=== PATIENT | male | born 1975 | race Two or more races ===

== ENCOUNTER 2024-12-12 09:34 | Emergency (ER) | payer BC, MEDICARE, SELFPAY ==
[2024-12-12] VITALS (11 sets, daily range): BP systolic 199–218; BP diastolic 77–86; PULSE 66–70; RESP 0–20; TEMP 33.9–34.9; O2SAT 87–100; BMI 27.5
[2024-12-12] MEDS: ETOMIDATE INJ 2 MG/ML VIAL 10 ML 20 MG IVP (09:41)
--- NOTE | 2024-12-12 09:42 | XR_ITS ---
Examination: AP chest single view Technique one AP portable semiupright chest single view Exam date and time: November 12, 2024 1016 hours Comparison January 16, 2023 INDICATIONS: Hypoxic respiratory failure postintubation FINDINGS: Normal heart size Endotracheal tube tip 8.4 cm above Ni. Orogastric tube is in the stomach, in satisfactory position. No aspiration pneumonia. Mild osteopenia. IMPRESSION: Endotracheal tube tip 8.4 cm above Ni No aspiration pneumonia
--- NOTE | 2024-12-12 09:51 | XR_ITS ---
Examination: CT brain head without contrast. 2-D sagittal coronal reconstructions Date and time of exam:December 12, 2024 1055 hours INDICATIONS: Status post cardiopulmonary arrest CTDI: vol (mGy):57 DLP: (mGycm):1178 Technique: Multiple CT axial sections of the brain have been obtained, 5 mm slice thickness. Contrast has not been administered. 2-D sagittal, coronal reconstructions have been obtained Low dose protocols were performed. One or more of the following dose reduction techniques were used; automated exposure control, adjustment of the mA and/or KV according to patient size, use of iterative reconstruction technique. Findings: 3 x 3.7 cm acute hemorrhage left caudate nucleus This hemorrhage has ruptured into the ventricular system Severe mass effect with shift of the frontal horns to the right at least 8 mm Hemorrhage in the lateral ventricles, third ventricle, aqueduct and fourth ventricle Lower end of the cerebellar tonsils poorly defined on the lateral view Cranial vault intact Mild to moderate ventricular enlargement Generalized cerebral edema IMPRESSION: Large acute hemorrhage left caudate nucleus which has ruptured into the ventricular system Significant mass effect Generalized cerebral edema
[2024-12-12 10:07] LABS: Lactate (Lactic Acid) 0.8 mMol/L (0.4-2.0)
[2024-12-12 10:10] LABS: Collection Type, Urine Catheter; Squamous Epithelial Cell,Urine 0 /hpf (0-5)
[2024-12-12 10:14] LABS: Basophils # (Auto) 0.1 Thou/mm3 (0.0-0.2); Basophils % (Auto) 1 % (0-2.5); Eosinophils # (Auto) 0.3 Thou/mm3 (0.0-0.5); Eosinophils % (Auto) 2 % (0-10); Hematocrit 33.8 % (41.0-53.0); Hemoglobin 11.3 g/dL (13.5-16.0); Immature Granulocytes % (Auto) 1 % (0-0); Immature Granulocytes Auto 0.09 Thou/mm3 (0.00-0.00); Lymphocytes # (Auto) 0.9 Thou/mm3 (1.0-4.8); Lymphocytes % (Auto) 7 % (10-50); Mean Corpuscular HGB Conc 33.4 g/dl (31.0-37.0); Mean Corpuscular Hemoglobin 27.6 pg (25.0-35.0); Mean Corpuscular Volume 83 fL (80-100); Monocytes # (Auto) 0.5 Thou/mm3 (0.0-0.8); Monocytes % (Auto) 3 % (0-12); Neutrophils # (Auto) 11.5 Thou/mm3 (1.8-7.7); Neutrophils % (Auto) 86 % (37-80); Nucleated Red Blood Cell % 0 /100 WBC (0); Platelet Count 139 Thou/mm3 (140-440); RDW Standard Deviation 66.4 fL (35.1-43.9); Red Blood Count 4.09 Miln/mm3 (4.50-5.90); White Blood Count 13.4 Thou/mm3 (3.8-10.6)
--- NOTE | 2024-12-12 10:20 | PC.NURSE ---
Patient BIBA from home after becoming unresponsive per family members. CPR initiated by family with pulses present upon EMS arrival and agononal breathing upon which EMS initiated BVM with O2 sat of 89%. Upon arrival to ER patient was intubated due to agonal breathing and low O2 saturation. 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 Hx of peritoneal dialysis which is performed at home daily, HTN, diabetes, high cholesterol and NKA.
[2024-12-12 10:27] LABS: Bilirubin,Urine Negative (Negative); Blood,Urine Negative (Negative); Clarity,Urine Clear (Clear/Hazy); Color,Urine Lt-Yellow (Lt Yel-Yel); Glucose, Urine 2+ (Negative); Hyaline Casts,Urine < 1 /hpf (0-1); Ketones,Urine Negative (Negative); Leukocyte Esterase,Urine Negative (Negative); Nitrite,Urine Negative (Negative); PH,Urine 7.5 (5.0-7.0); Protein,Urine 2+ (Neg - Trace); RBC,Urine 5 /hpf (0-3); Specific Gravity,Urine 1.013 (1.001-1.035); Urobilinogen,Urine Negative mg/dL (0.0-1.0); WBC,Urine 1 /hpf (0-5)
--- NOTE | 2024-12-12 10:29 | EDNOTE_ITS ---
Altered Mental Status RME/HPI General Chief Complaint: Altered Mental Status Stated Complaint: UNRESPONSIVE Time Seen by Provider: 12/12/24 09:50 Arrival date/time: 12/12/24 09:34 Limitations: no limitations RME / HPI RME / HPI narrative: 48 year old male with history of CAD, hypertension, insulin-dependant diabetes, hyperlipidemia, hypothyroidism, CKD, ESRD on PD, depression presents to the ED BIBA from home for evaluation of altered mental status today. Per medics report, family on scene reported finding the patient unresponsive this morning and began CPR. Upon fire departments arrival, patient had pulses with agonal respirations. On their arrival patient was found unresponsive, sinus rhythm rate 70's, saturating 89% on room air with agonal respirations. State they began ventilating with BVM at 100%. No medications given en route. Further history obtained from family indicates that the patient underwent a left BKA one month ago. Additionally, provided documentation that confirmed a recent admission to [facility] from 11/20/2024 through 12/11/2024. Medication list was also reviewed and patient is on Aspirin and Plavix though unknown when he last took anticoagulants. On arrival to the ED, the patient remains unresponsive and unable to provide additional history. Related Data Home Medications ?Medication ?Instructions ?Recorded ?Confirmed olmesartan 40 mg-amlodipine 10 1 tab PO QDAY 09/27/22 01/17/23 mg-hydrochlorothiazide 25 mg tablet (Tribenzor) albuterol sulfate 90 mcg/actuation 90 inh inhalation B ID PRN 10/19/22 01/17/23 aerosol inhaler Shortness Of Breath Or Wheez ing insulin degludec 200 unit/mL (3 45 unit subcut DAILY 0 10/19/22 01/16/23 mL) subcutaneous pen (Tresiba FlexTouch U-200 insulin) bumetanide 2 mg tablet 2 mg PO DAILY 01/16/2301/16 levothyroxine 25 mcg tablet 25 mcg PO DAILY 01/16/23 0 01/16/23 ondansetron HCl 4 mg tablet 4 mg PO TID PRN Nausea 03/0301/17/23 vitamin B comp no.3-folic acid 1 1 tab PO DAILY 01/16/23 mg-vit C 60 mg-biotin 300 mcg tablet (Cecilia-Joni Rx) atorvastatin 10 mg tablet 10 mg 01/17/23 hydralazine 50 mg tablet 50 mg PO TID 01/17/23 insulin degludec 200 unit/mL (3 unit subcut 01/17/23 mL) subcutaneous pen (Tresiba FlexTouch U-200 insulin) omeprazole 20 mg capsule,delayed 20 mg 01/17/23 release Allergies Allergy/AdvReac Type Severity Reaction Status Date / Time No Known Allergies Allergy Verified 01/16/23 08:16 Review of Systems Review of Systems ROS Unobtainable: unobtainable due to mental status Past Medical History Past Medical History CARDIAC: Positive Cardiac Disorders, Hypercholesterolemia, Edema (bilateral ankle edema, on and off. right foot with boot) and Hypertension RESPIRATORY: Positive Asthma GASTROINTESTINAL: Positive Gastrointestinal Disorders (heartburn) and Gastroesophageal Reflux Disease GENITOURINARY: Positive Genitourinary Disorders and Renal Disease ENDOCRINE: Positive Endocrine Disorders, Diabetes Mellitus Type 2 and Hyperthyroidism HEMATOLOGIC: Positive Blood Disorders and Anemia OTHER HISTORY: Positive Shingles, Blood Transfusions and Chicken Pox Family History FAMILY HISTORY: Positive Family Cardiac Disorders (dad had htn) and Family Surgery (dad had kidney transplant) Surgical History SURGICAL: Positive Nose Surgery (deviated septum surgery) Social History SMOKING STATUS: Unknown if ever smoked ED Exam General Limitations: Present no limitations General appearance: Present other (Unresponsive with agonal respirations, actively being bagged by medics on arrival, face is symetrical ) Head Head exam: Present atraumatic, normocephalic and other (No obvious signs of trauma ) Eye Eye exam: Present PERRL and other (Pupils are 5mm and equal. ) ENT ENT exam: Present normal exam, normal oropharynx and mucous membranes moist Neck Neck exam: Present normal inspection and trachea midline Chest Chest inspection: Present normal inspection and symmetric chest wall rise Respiratory Respiratory exam: Present other (No respiratory activity though while beign bagged has normal lung sounds bilaterally ) Cardiovascular Cardiovascular exam: Present regular rate, normal rhythm, normal heart sounds and other (good cardiac activity) Abdominal Exam Abdominal exam: Present soft, normal bowel sounds and other (Peritoneal dialysis port noted ) Extremities Exam Extremities exam: Present other (Left BKA, no evidence of trauma ) Back Exam Back exam: Present normal inspection and full ROM Neurological Exam Neurological exam: Present other (unresponsive, GCS 3. ) Skin Skin exam: Present warm, dry, intact and normal color Course Quality Measures none Orders Category Date Time Status CT Screening NOW Care 12/12/24 09:51 Completed Hospice Entrance Attendant Q4H START 00 Care 12/12/24 09:45 Active EKG (ED ONLY) *Do not use* NOW Care 12/12/24 09:44 Completed Insert IV NOW Care 12/12/24 09:44 Active Intubation NOW Care 12/12/24 09:59 Completed Urinary Catheter QS Care 12/12/24 09:[address] angio chest abdomen pelvis Stat Exams 12/12/24 09:[address] head/brain wo con Stat Exams 12/12/24 09:51 Completed EKG (ED Only) Stat Exams 12/12/24 09:44 Ordered XR chest 1V post procedure Stat Exams 12/12/24 09:42 Completed ABG [Arterial Blood Gas] Stat Lab 12/12/24 11:17 Completed Blood Culture (Lab) Stat Lab 12/12/24 09:45 Received CBC [CBC] Stat Lab 12/12/24 09:45 Completed CMP [Comprehensive Metabolic Panel] Stat Lab 12/12/24 09:45 Completed Drug Screen,Urine Stat Lab 12/12/24 10:00 Completed Lactate (Lactic Acid) Stat Lab 12/12/24 09:45 Completed PLATELETS [Pheresis Platelets] Stat Lab 12/12/24 11:24 Ordered Procalcitonin Stat Lab 12/12/24 09:45 Completed Sputum Culture and Gram Stain Stat Lab 12/12/24 11:17 Received Urinalysis Stat Lab 12/12/24 10:00 Completed Etomidate Inj [Amidate Inj] Med 12/12/24 09:42 Discontinued 20 mg IVP X1 ONE Etomidate Inj [Amidate Inj] Med 12/12/24 09:34 Discontinued 40 mg .ROUTE .STK-MED ONE Mannitol Inj 20% IVPB 250 ml Med 12/12/24 11:30 Discontinued IV X1 Nicardipine/Ns 20Mg Ivpb [Cardene Ivpb] Med 12/12/24 11:22 Active 20 mg in 200 ml IV 5 mg/hr Succinylcholine Inj [Anectine Inj] Med 12/12/24 09:35 Discontinued 400 mg .ROUTE .STK-MED ONE levETIRAcetam INJ [Keppra Inj] Med 12/12/24 11:18 Discontinued 1,000 mg IVP X1 ONE Volume Ventilator Routine RT 12/12/24 09:59 Active Reevaluation(s) Reevaluation #1: On reassessment, doll's eyes noted, pupils are 3mm bilaterally, no posturing. Time: 11:45 Vital Signs Vital signs: Vital Signs Pulse Rate 67 12/12/24 09:40 Respiratory Rate 0 L 12/12/24 09:40 Blood Pressure 218/78 H 12/12/24 09:40 Pulse Oximetry (%) 100 12/12/24 09:40 Procedures -ED Intubation sedative: Etomidate Mg Given: 20 Laryngoscope: fiber optic video scope Assist Device Used: fiber optic device ET Tube Size: 7.5 ET Tube Uncuffed: No Tube Secured Depth (cm): 23 Tube Secured Location: teeth Tube Placement Confirmation: visualized tube passing through cords, equal breath sounds bilaterally, no breath sounds over epigastrium and confirmation by capnometry Patient Tolerated Procedure: well and no complications Intubation Complications: none Altered Mental Status MDM Narrative MDM Narrative:: IAdriana, am scribing for and in the presence of Dr. Perry. 48 year old male with a history of CAD, hypertension, insulin-dependent diabetes, hyperlipidemia, hypothyroidism, CKD, ESRD on PD, depression, presenting with altered mental status. Found unresponsive at home, requiring BVM ventilation at 100%. Family initiated CPR prior to EMS arrival. Head CT reveals a large acute hemorrhage in the left caudate nucleus, which has ruptured into the ventricular system. I spoke with neurosurgeon Dr. Moore at [facility]. He recommended Nicardipine drip, 1 gram of Keppra, 50 grams of Mannitol, platelets, and raise head of bed 30 degrees. Patient has been accepted for transfer. 1128: I spoke with patients . We reviewed today's results and plan to transfer. She is in agreement with plan. Patient data External records reviewed:: [facility] previous records (I reviewed ED visit on 01/16/2023 through 01/24/2023) Clinical information provided by:: EMS Social determinants that could affect healthcare access:: none Patient has the following chronic illnesses:: CAD, hypertension, insulin-dependant, diabetes, hyperlipidemia, hypothyroidism, CKD, ESRD on PD, depression How is presenting disease/condition affected by chronic disease/condition?: exacerbated by Evaluation data The following diagnostics were reviewed and interpreted by me:: lab results, radiology exam(s) and EKG tracing(s) (EKG at 09:41 AM. Sinus rhythm, rate 73, IVCD, prolonged QT interval. ) Lab and/or radiology exams considered but not ordered:: None Interpretation Summary: Ordering Physician: Timi Perry MD Date of Service: 12/12/24 Procedure(s): CT head/brain wo con Accession Number(s): [id number] cc: Timi Perry MD; Barrett Payton MD; Nolan Beltrán MD~ Examination: CT brain head without contrast. 2-D sagittal coronal reconstructions Date and time of exam:December 12, 2024 1055 hours INDICATIONS: Status post cardiopulmonary arrest CTDI: vol (mGy):57 DLP: (mGycm):1178 Technique: Multiple CT axial sections of the brain have been obtained, 5 mm slice thickness. Contrast has not been administered. 2-D sagittal, coronal reconstructions have been obtained Low dose protocols were performed. One or more of the following dose reduction techniques were used; automated exposure control, adjustment of the mA and/or KV according to patient size, use of iterative reconstruction technique. Findings: 3 x 3.7 cm acute hemorrhage left caudate nucleus This hemorrhage has ruptured into the ventricular system Severe mass effect with shift of the frontal horns to the right at least 8 mm Hemorrhage in the lateral ventricles, third ventricle, aqueduct and fourth ventricle Lower end of the cerebellar tonsils poorly defined on the lateral view Cranial vault intact Mild to moderate ventricular enlargement Generalized cerebral edema IMPRESSION: Large acute hemorrhage left caudate nucleus which has ruptured into the ventricular system Significant mass effect Generalized cerebral edema Dictated By: Barrett Payton MD Signed By: <Electronically signed by Barrett Payton MD in OV> 12/12/24 1103 Ordering Physician: Timi Perry MD Date of Service: 12/12/24 Procedure(s): XR chest 1V post procedure Accession Number(s): [id number] cc: Timi Perry MD; Barrett Payton MD; Nolan Beltrán MD~ Examination: AP chest single view Technique one AP portable semiupright chest single view Exam date and time: November 12, 2024 1016 hours Comparison January 16, 2023 INDICATIONS: Hypoxic respiratory failure postintubation FINDINGS: Normal heart size Endotracheal tube tip 8.4 cm above Ni. Orogastric tube is in the stomach, in satisfactory position. No aspiration pneumonia. Mild osteopenia. IMPRESSION: Endotracheal tube tip 8.4 cm above Ni No aspiration pneumonia Dictated By: Barrett Payton MD Signed By: <Electronically signed by Barrett Payton MD in OV> 12/12/24 1121 Medications / Prescriptions Medications or Prescriptions considered but not ordered:: None Medication administrations:: Medication Administration History Nicardipine/Sodium Chloride (Cardene Ivpb) 20 mg in 200 mls @ 50 mls/hr IV .Q4H PRN; Protocol PRN Reason: PER PROTOCOL Stop: 01/11/25 11:21 Discontinued Medications Etomidate (Etomidate Inj 2 Mg/Ml Vial 10 Ml) Confirm Administered Dose 40 mg .ROUTE .STK-MED ONE Stop: 12/12/24 09:35 Last Admin: 12/12/24 09:53 Dose: Not Given Documented By: EUSEBIO Non-Admin Reason: Duplicate Medication on eMAR Etomidate (Etomidate Inj 2 Mg/Ml Vial 10 Ml) 20 mg IVP X1 ONE Stop: 12/12/24 09:43 Last Admin: 12/12/24 09:41 Dose: 20 mg Documented By: EUSEBIO Mannitol (Mannitol Inj 20% Ivpb) 250 mls @ 500 mls/hr IV X1 ONE Stop: 12/12/24 11:59 Levetiracetam (Levetiracetam Inj 100 Mg/Ml Vial 5ml) 1,000 mg IVP X1 ONE Stop: 12/12/24 11:19 Succinylcholine Chloride (Succinylcholine Inj 20 Mg/Ml Vial 10 Ml) Confirm Administered Dose 400 mg .ROUTE .STK-MED ONE Stop: 12/12/24 09:36 Last Admin: 12/12/24 09:53 Dose: Not Given Documented By: RD Non-Admin Reason: Cancelled by Provider See above Consultations Consultation(s) initiated? (list below): Yes Consultation #1 (Physician, Specialty, Details): I spoke with transfer nurse and neurosurgeon Dr. Moore at [facility]. Discussed patients PMHx, HPI, ED course, exam findings, labs, and radiology results. He recommended Nicardipine drip, 1 gram of Keppra, 50 grams of Mannitol, platelets, and raise head of bed 30 degrees. He accepts the patient for transfer. Time: 11:17 Diagnosis Differential diagnosis altered mental status: altered mental status, dementia, hypoglycemia, hyponatremia, subarachnoid hemorrhage, sepsis and other (CVA, ICH ) Most likely diagnosis given after review of the tests above:: Massive intracranial hemorrhage. Admission Indicated Admission indicated?: not indicated Explain why admission is indicated or not indicated:: Requires transfer for neurosurgery Admission Request Was there a request for admission?: No Disposition Plan Disposition Plan: Transfer Critical Care Time Critical Care Time Critical Care Time: Yes Total Critical Care Time (min.): 40 Attestation: The high probability of sudden, clinically significant deterioration in the patient's condition required the highest level of my preparedness to intervene urgently. The services I provided to this patient were to treat and/or prevent clinically significant deterioration. Services included the following: chart data review, reviewing nursing notes and/or old charts, documentation time, senior science consultant collaboration regarding findings and treatment options, medication orders and management, direct patient care, vital sign assessments and ordering, interpreting and reviewing diagnostic studies and lab tests. Aggregate critical care time includes only time during which I was engaged in work directly related to the patient's care, as described above, whether at bedside or elsewhere in the Emergency Department. It did not include time spent performing other reported procedures or the services of residents, students, nurses or physician assistants. Discharge Plan Plan Patient Disposition: [facility] Facility Pt Being Transferred to: [facility] Service Needed for Transfer: Neurosurgery Prescriptions/Referrals Prescriptions/Med Rec: No Action bumetanide 2 mg tablet 2 mg PO DAILY Patient Comments: take 1 tablet by mouth once daily ondansetron HCl 4 mg tablet 4 mg PO TID PRN (Reason: Nausea) Patient Comments: take 1 tablet by mouth three times a day if needed for nausea levothyroxine 25 mcg tablet 25 mcg PO DAILY Patient Comments: take 1 tablet by mouth once daily IN THE MORNING ON AN EMPTY STOMACH Cecilia-Joni Rx 1-60-300 mg-mg-mcg tablet 1 tab PO DAILY Patient Comments: take 1 tablet by mouth once daily hydralazine 50 mg tablet 50 mg PO TID Patient Comments: take 1 tablet by mouth three times a day insulin degludec [Tresiba FlexTouch U-200] 200 unit/mL (3 mL) insulin pen SUBCUT Patient Comments: inject 45 units subcutaneously once daily atorvastatin 10 mg tablet 10 mg Patient Comments: take 1 tablet by mouth once daily omeprazole 20 mg capsule,delayed release(DR/EC) 20 mg Patient Comments: take 1 capsule by mouth once daily 30 MINUTES BEFORE MORNING MEAL [id number] [Tribenzor] 40-10-25 mg Tablet 1 tab PO QDAY albuterol sulfate 90 mcg/actuation HFA aerosol inhaler 90 inh INHALATION BID PRN (Reason: Shortness Of Breath Or Wheezing) Patient Comments: inhale 2 puffs by mouth every 4 hours if needed insulin degludec [Tresiba FlexTouch U-200] 200 unit/mL (3 mL) insulin pen 45 unit SUBCUT DAILY Patient Comments: inject 50 units subcutaneously once daily Referrals: Jerel (PCP)Nolan MD [Primary Care Provider] - In 1 week Problem List Clinical Impression: Intracranial hemorrhage Patient/Caregiver Discharge Instructions Print Language: Mosotho Stand Alone Forms: [employer] [employer] Info., Patient Portal Info Letter
[2024-12-12 10:42] LABS: Alanine Aminotransferase 12 U/L (10-49); Albumin, Serum 3.7 gm/dL (3.5-5.0); Albumin/Globulin Ratio 1.2 (1.2-2.2); Alkaline Phosphatase 137 U/L (46-116); Anion Gap 17 (7-16); Aspartate Amino Transferase 19 U/L (0-34); BUN/Creatinine Ratio 10 Ratio (12-20); Bilirubin,Total < 0.2 mg/dL (0.3-1.2); Calcium 7.7 mg/dL (8.3-10.6); Calcium (Corrected) 7.9 mg/dL (8.5-10.1); Carbon Dioxide 25.1 mMol/L (20.0-31.0); Chloride 91 mMol/L (98-107); Estimated Creatinine Clearance 9.7 mL/min (>60); Globulin 3.1 gm/dL (2.3-3.5); Glucose 243 mg/dL (74-106); Osmolality,Calculated 306 (275-295); Potassium 5.5 mMol/L (3.4-5.1); Procalcitonin 0.31 ng/ml (0.0-0.49); Sodium 133 mMol/L (136-145); Total Protein 6.8 gm/dL (5.7-8.2); eGFR 6 See Note
[2024-12-12 10:43] LABS: Blood Urea Nitrogen 104 mg/dL (9-23); Creatinine (Component) 10.1 mg/dL (0.6-1.3)
[2024-12-12 10:56] LABS: Amphetamine/Methamp Scrn,U Negative (Negative); Barbiturate Screen,Urine Negative (Negative); Benzodiazepines Screen,Urine Negative (Negative); Benzoylecgonine Screen, Ur Negative (Negative); Fentanyl Screen,Urine Negative (Negative); Opiate Screen,Urine Negative (Negative); THC Screen,Urine Negative (Negative)
--- NOTE | 2024-12-12 10:57 | PC.CC ---
Addendum entered by Jeovanny Soriano RN 12/12/24 12:17: 1207 sent paperwork to RICHARD through [employer]. Called RICHARD, spoke to and she confirmed that she received the paperwork. 1153 spoke to Kaylee with [facility] and informed ETA for [employer] is 1205. Addendum entered by Jeovanny Soriano RN 12/12/24 12:10: 1145 Made 2 transfer packets. 1 for [facility] with CD inside and 1 for [facility]. Completed all signatures. Gave transfer packets to charge nurse, informed bedside nurse of transfer packet and number to call for report is on tracker. Addendum entered by Jeovanny Soriano RN 12/12/24 11:43: 1129 received call from Herve with [employer]. ETA for crew is 1205. Addendum entered by Jeovanny Soriano RN 12/12/24 11:28: 1122 called [facility], spoke to Herve and setup the transport. Herve stated he will call me back after flight check. Addendum entered by Jeovanny Soriano RN 12/12/24 11:24: 1121 received call from Kaylee that pt is accepted at [facility] for ED to ED transfer. Accepting Dr. is Dr. Chaudhry. Call report at [phone]. Addendum entered by Jeovanny Soriano RN 12/12/24 11:20: 1058 called [facility], spoke to Kaylee and initiated the transfer. She then connected me with [facility] charge nurse Naldo. Naldo gave Kaylee the direct number for Dr. Means and Dr. Moore. Kaylee then wants me to connect her with Dr. Perry. Conference call connected. Then Dr. Perry was connected to Dr. Moore for peer to peer. I also faxed clinicals to [facility] and [facility]. Original Note: [address] Perry that pt needs to be transferred for intracranial hemorrhage. Pt is unresponsive and intubated.
--- NOTE | 2024-12-12 11:11 | PC.NURSE ---
Patient taken to CT and brain bleed found. Per ER provider, CT angio canceled. notified by ER provider of patient current condition and need to be transferred to another facility. Oral bleeding observed by Student RN and suction of oral cavity initiated. Awaiting further orders by physician.
[2024-12-12 11:24] LABS: Allen Test Performed/OK; Base Excess 0 (-3-3); HCO3 24 mEq/L (20-26); Inspired Oxygen, FIO2 40 %; O2 Saturation 99 % (91-98); PCO2 36 mmHg (32.0-48.0); PO2 106 mmHg (83-108); Puncture Site Right Brachial; pH, Arterial 7.42 (7.35-7.45)
[2024-12-12] MEDS: levETIRAcetam INJ 100 MG/ML VIAL 5ML 1000 MG IVP (11:50)
[2024-12-12] MEDS: Mannitol Inj 20% IVPB 250 ML 500 ML IV (12:04)
[2024-12-12] MEDS: NICARDIPINE/NS 20MG IVPB 20 MG/200 ML BAG 50 MG IV (12:05)
[2024-12-12] MEDS: fentaNYL CIT INJ 50 mCg/ML AMP 2ML 100 MCG IVP (12:08)
--- NOTE | 2024-12-12 12:28 | PC.NURSE ---
Report given to Marjorie WHITE at [facility].
--- NOTE | 2024-12-12 12:31 | PC.NURSE ---
[facility] and [facility] on scene for patient transport to [facility].
== END 2024-12-12 12:43 | disposition short-term general hospital (02) ==
PROVIDERS: Emergency Provider Emergency Medicine; PCP Family Medicine
DX: I62.9 Nontraumatic intracranial hemorrhage, unspecified (principal); J95.821 Acute postprocedural respiratory failure; G93.6 Cerebral edema; I12.0 Hypertensive chronic kidney disease with stage 5 chronic kidney disease or end stage renal disease; E11.22 Type 2 diabetes mellitus with diabetic chronic kidney disease; Z99.2 Dependence on renal dialysis; N18.6 End stage renal disease; E11.9 Type 2 diabetes mellitus without complications; I25.10 Atherosclerotic heart disease of native coronary artery without angina pectoris; E78.00 Pure hypercholesterolemia, unspecified; R22.0 Localized swelling, mass and lump, head; Z75.1 Person awaiting admission to adequate facility elsewhere
CPT/HCPCS: 31500; 51702; 36415; 36600; 70450; 80053; 80307; 81001; 82803; 83605; 84145; 85025; 86965; 87040; 87205; 93005; 94002; 96365; 99291; A4314; J1953; J2404; J3010; J3490